=== PATIENT | male | born 1995 | race African-American/Black ===

== ENCOUNTER 2021-03-18 11:29 | Emergency (ER) | payer OTHER ==
[2021-03-18] MEDS ORDERED: BENADRYL25 MG PO (12:00)
[2021-03-18] MEDS ORDERED: MEDROL4 MG PO (12:00)
== END 2021-03-18 12:18 | disposition home or self-care (01) ==
LOC: ER1 11:29
DX: R21 Rash and other nonspecific skin eruption (principal); R06.02 Shortness of breath
CPT/HCPCS: 96374; 96375; 99284; J1200; J2930

== ENCOUNTER 2021-05-03 11:00 | Emergency (ER) | payer SELFPAY ==
[~2021-05-03 11:00] MED LIST: BENADRYL25 MG PO; MEDROL4 MG PO
[2021-05-03 12:21] LABS: RED BLOOD COUNT 5.27 M/UL (4.20-5.50); WHITE BLOOD COUNT 6.4 K/UL (4.5-11.0)
[2021-05-03 12:41] LABS: BUN/CREATININE RATIO 10 (0-10)
[2021-05-03] MEDS ORDERED: ZOFRAN4 MG PO (13:45)
== END 2021-05-03 13:59 | disposition home or self-care (01) ==
LOC: ER1 11:00
PROVIDERS: Physician Assistant Medical
DX: R11.2 Nausea with vomiting, unspecified (principal); R10.9 Unspecified abdominal pain; F17.290 Nicotine dependence, other tobacco product, uncomplicated
CPT/HCPCS: 80053; 81001; 83690; 85025; 99284

== ENCOUNTER 2021-05-14 04:13 | Emergency (ER) | payer SELFPAY ==
[~2021-05-14 04:13] MED LIST changes: +ZOFRAN4 MG PO
[2021-05-14] MEDS ORDERED: LODINE CAP 300300 MG PO (05:40)
== END 2021-05-14 06:20 | disposition home or self-care (01) ==
LOC: ER1 04:13
DX: M25.562 Pain in left knee (principal); W22.8XXA Striking against or struck by other objects, initial encounter
CPT/HCPCS: 73552; 73564; 99283

== ENCOUNTER 2021-05-17 01:45 | Emergency (ER) | payer SELFPAY ==
[~2021-05-17 01:45] MED LIST changes: +LODINE CAP 300300 MG PO
== END 2021-05-17 08:08 | disposition home or self-care (01) ==
LOC: ER1 01:45
DX: S80.02XA Contusion of left knee, initial encounter (principal); W22.8XXA Striking against or struck by other objects, initial encounter
CPT/HCPCS: 73562; 99283